=== PATIENT | male | born 2000 | race Two or more races ===

== ENCOUNTER 2023-05-05 00:57 | Emergency (ER) | payer MEDICAID, OTHER ==
[~2023-05-05] VITALS: Ht 172.7 cm; Wt 77.3 kg
[2023-05-05] MEDS ORDERED: TETANUS-DIPTH-ACEL PERTUSSIS 0.5ML SYR Tdap IM ONE (01:30)
[2023-05-05] MEDS ORDERED: IBUP-1456 PO (01:33)
[2023-05-05] MEDS ORDERED: CEPH500C PO (01:33)
[2023-05-05 02:03] VITALS: BP 117/77; PULSE 85; RESP 17; TEMP 98.3; O2SAT 98
[2023-05-05] MEDS ORDERED: LIDOCAINE 1% HCL (LOCAL ANESTH.) INJ 20ML MDV ID ONE (02:45)
== END 2023-05-05 03:00 | disposition home or self-care (01) ==
LOC: ER 00:57
DX: S81.812A Laceration without foreign body, left lower leg, initial encounter (principal); V22.49XA Other motorcycle driver injured in collision with two- or three-wheeled motor vehicle in traffic accident, initial encounter; Y93.55 Activity, bike riding; Y92.488 Other paved roadways as the place of occurrence of the external cause; Y99.8 Other external cause status
CPT/HCPCS: 12002; 73590; 90471; 90715; 99283; J2001